=== PATIENT | female | born 1975 | race Two or more races ===

== ENCOUNTER 2017-10-25 08:43 | Outpatient (CLI) | payer OTHER ==
[~2017-10-25 08:43] MED LIST: MOBIC15 MG PO; ORPH100T PO; ZYNCOF 20-400120 ML PO
== END 2017-10-25 08:51 | disposition home or self-care (01) ==
LOC: LAB 08:43
DX: R93.3 Abnormal findings on diagnostic imaging of other parts of digestive tract (principal); Z51.81 Encounter for therapeutic drug level monitoring

== ENCOUNTER 2017-10-25 09:27 | Outpatient (CLI) | payer OTHER | END 2017-10-25 09:50 | disposition home or self-care (01) | LOC: MAMO-SONO 09:27 | DX: Z12.31 Encounter for screening mammogram for malignant neoplasm of breast (principal); E04.1 Nontoxic single thyroid nodule ==

== ENCOUNTER 2018-04-21 09:42 | Outpatient (CLI) | payer OTHER | END 2018-04-21 09:51 | disposition home or self-care (01) | LOC: TOM 09:42 | DX: R10.2 Pelvic and perineal pain (principal); R10.10 Upper abdominal pain, unspecified; R10.30 Lower abdominal pain, unspecified; R58 Hemorrhage, not elsewhere classified ==

== ENCOUNTER 2018-11-07 08:37 | Outpatient (CLI) | payer OTHER | END 2018-11-07 08:52 | disposition home or self-care (01) | LOC: RAD 08:37 → MAMO-SONO 13:15 | DX: E04.1 Nontoxic single thyroid nodule (principal) ==

== ENCOUNTER 2019-08-05 12:53 | Outpatient (CLI) | payer OTHER | END 2019-08-05 13:05 | disposition home or self-care (01) | LOC: MAMO-SONO 12:53 | PROVIDERS: ATTEND Obstetrics & Gynecology | DX: Z12.31 Encounter for screening mammogram for malignant neoplasm of breast (principal); N64.2 Atrophy of breast ==

== ENCOUNTER 2020-03-25 10:04 | Outpatient (CLI) | payer OTHER | END 2020-03-25 10:45 | disposition home or self-care (01) | LOC: TOM 10:04 | PROVIDERS: ATTEND Internal Medicine Geriatric Medicine | DX: M17.0 Bilateral primary osteoarthritis of knee (principal); M25.562 Pain in left knee; M25.561 Pain in right knee; M79.642 Pain in left hand; M79.641 Pain in right hand ==

== ENCOUNTER 2020-10-27 08:54 | Outpatient (CLI) | payer OTHER | END 2020-10-27 09:03 | disposition home or self-care (01) | LOC: MAMO-SONO 08:54 | PROVIDERS: ATTEND Obstetrics & Gynecology | DX: N60.01 Solitary cyst of right breast (principal); Z12.31 Encounter for screening mammogram for malignant neoplasm of breast ==

== ENCOUNTER 2021-11-03 08:15 | Outpatient (CLI) | payer OTHER | END 2021-11-03 08:32 | disposition home or self-care (01) | LOC: RAD 08:15 | PROVIDERS: ATTEND Internal Medicine Geriatric Medicine | DX: D44.10 Neoplasm of uncertain behavior of unspecified adrenal gland (principal); D35.02 Benign neoplasm of left adrenal gland; N64.2 Atrophy of breast; Z12.31 Encounter for screening mammogram for malignant neoplasm of breast; E04.2 Nontoxic multinodular goiter ==

== ENCOUNTER 2022-02-23 10:14 | Outpatient (CLI) | payer OTHER | END 2022-02-23 10:30 | disposition home or self-care (01) | LOC: RAD 10:14 | DX: M25.561 Pain in right knee (principal) | CPT/HCPCS: 73721 ==

== ENCOUNTER 2022-06-26 08:19 | Outpatient (CLI) | payer OTHER | END 2022-06-26 08:20 | disposition home or self-care (01) | LOC: LAB 08:19 | PROVIDERS: ATTEND Internal Medicine Hematology & Oncology | DX: D50.8 Other iron deficiency anemias (principal); R79.9 Abnormal finding of blood chemistry, unspecified; I10 Essential (primary) hypertension; R74.02 Elevation of levels of lactic acid dehydrogenase [LDH]; K76.89 Other specified diseases of liver; D63.8 Anemia in other chronic diseases classified elsewhere; D55.0 Anemia due to glucose-6-phosphate dehydrogenase [G6PD] deficiency; E55.9 Vitamin D deficiency, unspecified; D51.1 Vitamin B12 deficiency anemia due to selective vitamin B12 malabsorption with proteinuria; D51.0 Vitamin B12 deficiency anemia due to intrinsic factor deficiency; E03.8 Other specified hypothyroidism; E06.3 Autoimmune thyroiditis; D72.828 Other elevated white blood cell count; D56.8 Other thalassemias; J45.998 Other asthma ==